=== PATIENT | female | born 1940 | race Two or more races ===

== ENCOUNTER → 2023-05-21 | Outpatient (CLI) | payer OTHER ==
[2023-05-21 12:11] LABS: Basophils # (auto) 0 10 ^3/uL (0-0.2); Basophils % (auto) 0.8 % (0.0-2.0); Eosinophils # (auto) 0.3 10 ^3/uL (0-0.8); Eosinophils % (auto) 5.1 % (0.0-7.0); Hematocrit 37.2 % (36.0-46.0); Hemoglobin 12.7 g/dL (12.2-16.2); Lymphocytes % (auto) 34.8 % (10.0-50.0); Mean Corpuscular Hemoglobin 30.6 pg (28.0-32.0); Mean Corpuscular Volume 90.1 fL (80.0-100.0); Monocytes # (auto) 0.4 10 ^3/uL (0-1.3); Monocytes % (auto) 6.1 % (0.0-12.0); Neutrophils # (auto) 3.1 10 ^3/uL (1.6-8.6); Neutrophils % (auto) 53.2 % (37.0-80.0); Nucleated Red Blood Cells % 0.2 %; Red Blood Cells 4.14 10^6/uL (4.0-5.20); Red Cell Distribution Width 13.9 % (11.8-14.3); White Blood Cell 5.9 10^3/uL (4.4-10.8)
[2023-05-21 12:35] LABS: Alanine Aminotransferase 14 U/L (7-40); Albumin 4.4 g/dL (3.2-4.8); Alkaline Phosphatase 113 U/L (46-116); Anion Gap 7 (5-15); Aspartate Aminotransferase 19 U/L (13-40); BUN/Creatinine Ratio 21.2 (10.0-20.0); Blood Urea Nitrogen 25 mg/dL (9-23); Calcium 9.9 mg/dL (8.5-10.1); Carbon Dioxide 30 mmol/L (20-30); Chloride 103 mmol/L (98-107); Glucose 96 mg/dL (74-106); LDL Cholesterol 125 mg/dL (< 100); Potassium 4.2 mmol/L (3.5-5.1); Sodium 140 mmol/L (136-145); Triglycerides 310 mg/dL (< 150)
[2023-05-21 12:36] LABS: Bilirubin, Total 0.3 mg/dL (0.2-1.0); Cholesterol 215 mg/dL (< 200); HDL Cholesterol 33 mg/dL (40-59); Total Protein 7.9 g/dL (5.7-8.2)
== END | disposition home or self-care (01) ==
LOC: LAB 11:52
PROVIDERS: ATTEND Internal Medicine
DX: Z12.11 Encounter for screening for malignant neoplasm of colon (principal); E78.00 Pure hypercholesterolemia, unspecified; R68.89 Other general symptoms and signs; R56.9 Unspecified convulsions
CPT/HCPCS: 36415; 80053; 80061; 80185; 85025

== ENCOUNTER 2025-03-05 03:00 | Inpatient (IN) | payer OTHER ==
[~2025-03-05] VITALS: Ht 152.4 cm; Wt 59.1 kg
[2025-03-05] VITALS (7 sets, daily range): BP systolic 112–129; BP diastolic 32–73; PULSE 60–78; RESP 12–16; TEMP 96.6–98.4; O2SAT 96–100
--- NOTE | 2025-03-05 04:18 | ED.PDOC ---
History of Present Illness HPI Comments 84-year-old female with a history of hypertension, dementia and seizures transferred from [facility] where she presented after having had multiple falls that started last night patient reportedly suffered around 15 falls. Patient underwent workup at [facility] including CT head which was unremarkable and chest x-ray which showed pneumonia. Patient is noted to be alert and oriented x3 this time, but is slow to respond to questions. She denies any chest pain, shortness of breath, nausea, vomiting or fever. No other associated symptoms, factors, modifiers at this time. Chief Complaint: Fall Injury Time Seen by MD: 04:13 Reviewed Notes: Nurses Notes, Framing Machine Tender Notes, Medications, Allergies Allergies: Coded Allergies: Codeine (Verified Allergy, Unknown, 03/05/25) Information Source: Patient, Emergency Med Personnel Mode of Arrival: EMS Severity: Moderate Timing: Hours Duration: Since onset, Hours Prehospital treatment: None Past Medical History PAST MEDICAL HISTORY: Dementia, HTN, Seizures Surgical History (Other): Heart surgery CERTIFIED CAREGIVER History: Unknown Family History Family History: Unknown Social History Smoker: Non-Smoker Alcohol: Denies ETOH Use Drugs: Denies Drug Use Lives In: Home All Other Systems: Reviewed and Negative (Comprehensive systems review obtained and negative except for what is stated in the HPI.) Physical Exam General Appearance: No Apparent Distress HEENT: Other (Pupils and face symmetric. Moist mucous membranes.) Neck: Full Range of Motion, Non-Tender, Normal Inspection, Supple Respiratory: Decreased Breath Sounds, No Accessory Muscle Use, No Respiratory Distress Cardiovascular: No Edema, No JVD, Regular Rate/Rhythm Breast Exam: Deferred Gastrointestinal: Non Tender, Soft Genitalia: Deferred Pelvic: Deferred Rectal: Deferred Extremities: Normal inspection, Normal range of motion, Non-tender, No pedal edema Neurologic: Alert (Oriented x3), Normal Affect, Normal Mood, Other (Moves all extremities. No gross focal deficit.) Cerebellar Function: NOT DONE Reflexes: NOT DONE Skin: Dry, Pallor, Warm Lymphatic: NOT DONE Was a procedure done? Was a procedure done?: No Differential Dx Considerations may include: CVA, TIA, electrolyte imbalance, deconditioning, pneumonia, among others X-Ray, Labs, Meds, VS Vital Signs Date Time Temp Pulse Resp B/P (MAP) Pulse Ox O2 Delivery O2 Flow Rate FiO2 03/05/25 03:05 97.5 55 16 150/71 98 97.5 X-Ray, Labs, Meds, VS Comment 84-year-old female with a history of hypertension, dementia and seizures transferred from [facility] for evaluation of multiple recent falls and pneumonia Vitals remarkable for heart rate 55, BP 140/71 Exam unremarkable except for diminished breath sounds at the bases Rhythm strip independently interpreted by me: Sinus rhythm, rate 55, no ectopy. CBC, basic metabolic panel, BNP, troponins, lactate and blood cultures pending Patient was treated at [facility] with IV normal saline, IV Zosyn and Benadryl IM. Plan is to admit the patient for IV antibiotics and PT/OT evaluation Time of 1ST Reevaluation: 04:44 Reevaluation 1ST: Unchanged Patient Education/Counseling: Diagnosis, Treatment, Need For Follow Up Family Education/Counseling: No Family Present SEPSIS Sepsis Screen Date sepsis recognized/suspect: Mar 05, 2025 Time Sepsis recognized/suspect: 310 Recent Procedure: No On Antibiotic Therapy: No Respiratory Rate >20: No Heart Rate >90: No Temp<36 C (96.8 F) or >38.3 C: No SBP <90 or MAP <65 mmHG: No New Acute Mental Status Change: No Is the patient on CPAP, BIPAP,: No Physician Orders Troponin-I Hs (03/05/25 03:59) Complete Blood Count (03/05/25 03:59) B-Type Natriuretic Peptide (03/05/25 03:59) Chest Portable (03/05/25 03:59) Basic Metabolic Panel (03/05/25 03:59) Electrocardigram (03/05/25 03:59) Lactic Acid W/ Reflex Order (03/05/25 03:59) Blood Culture (03/05/25 03:59) Troponin-I Hs (03/05/25 04:59) Troponin-I Hs (03/05/25 06:59) Vital Signs Date Time Temp Pulse Resp B/P (MAP) Pulse Ox O2 Delivery O2 Flow Rate FiO2 03/05/25 03:05 97.5 55 16 150/71 98 97.5 Departure 1 Departure Time of Disposition: 05:18 Impression: Primary Impression: Frequent falls Additional Impression: Pneumonia Disposition: ADMITTED INPATIENT Admit to: Tele Condition: Guarded Critical Care Note Critical Care Time?: No Stability Stability form required: No Heart Score Heart Score: Heart Score Response (Comments) Value History N/A 0 EKG N/A 0 Age N/A 0 Risk Factors N/A 0 Troponin N/A 0 Total 0 I personally scribed for VIRGIE DE LA FUENTE MD ([email or web address]) on 03/05/25 at 04:18. Electronically submitted by Richard Mckeon ([email or web address]). VIRGIE DE LA FUENTE MD Mar 05, 2025 04:18
--- NOTE | 2025-03-05 05:47 | DVH ---
CHEST RADIOGRAPH Indication: pna Technique: 1 view Comparison: None FINDINGS: Assessment significantly limited by overlying arm. Lines and Tubes: Leads appear external to patient. Lungs: No obvious focal consolidation. Mild bibasilar airspace opacities suggestive of atelectasis.. Bilateral interstitial opacities. Pleura: No obvious abnormality. Cardiomediastinal contours: Enlarged heart size. Suspected aortic valve replacement. Possible prior C ABG. Bones: No acute osseous abnormality. Median sternotomy wires and cervical fixation. IMPRESSION: 1. Limited exam. Evidence of heart failure with interstitial edema and mild basilar atelectasis.
[2025-03-05 06:05] LABS: Chloride 103 mmol/L (98-107); Sodium 144 mmol/L (136-145)
[2025-03-05 06:06] LABS: Anion Gap 11 (5-15); Carbon Dioxide 30 mmol/L (20-31)
[2025-03-05 06:07] LABS: Hematocrit 36.1 % (36.0-46.0); Hemoglobin 12.6 g/dL (12.2-16.2); Mean Corpuscular Hemoglobin 32.8 pg (28.0-32.0); Mean Corpuscular Volume 94.4 fL (80.0-100.0); Nucleated Red Blood Cells % 0.1 %
[2025-03-05 06:11] LABS: BUN/Creatinine Ratio 9.1 (10.0-20.0); Blood Urea Nitrogen 10 mg/dL (9-23); Glucose 84 mg/dL (74-106)
[2025-03-05 06:27] LABS: Calcium 8.2 mg/dL (8.7-10.4); Potassium 3.1 mmol/L (3.5-5.1)
[2025-03-05 09:14] LABS: Albumin 3.6 g/dL (3.2-4.8); Alkaline Phosphatase 93.0 U/L (46-116); Bilirubin, Direct 0.1 mg/dL (<0.3); Bilirubin, Total 0.4 mg/dL (0.2-1.0); Magnesium 1.8 mg/dL (1.6-2.6); Total Protein 6.2 g/dL (5.7-8.2)
[2025-03-05 09:22] LABS: Alanine Aminotransferase 47.0 U/L (7-40)
[2025-03-05 09:37] LABS: Urine Protein, UAD Negative (Negative)
[2025-03-05 09:44] LABS: Barbiturate Scree,Urine Neg (NEGATIVE)
[2025-03-05 09:45] LABS: Amphetamine Screen, Urine Neg (NEGATIVE); Benzodiazephine Screen, Urine Neg (NEGATIVE); Cannabinoid Screen, Urine Neg (NEGATIVE); Cocaine Screen, Urine Neg (NEGATIVE); Opiate Scree,Urine Neg (NEGATIVE); Phencyclidine Screen, Urine Neg (NEGATIVE)
--- NOTE | 2025-03-05 09:52 | DVHHPRES ---
History of Present Illness Resident Creating Document: ARIES MORATAYA RESIDENT History of Present Illness This is an 84-year-old female with a history of seizures, possible aortic valve replacement, questionable congestive heart failure, hypertension, dementia who was transferred from [facility] for the evaluation of falls. Patient appears confused and disoriented, not following commands. Clement at bedside reports that patient was taking her water pills daily and was not eating and drinking for the past 2 weeks, reports that the patient was experiencing no appetite and generalized weakness. Patient does not use a walker to ambulate, experienced about 5 falls on 03/03 because her legs were giving up in the patient with collapse, denies that the patient did not hit her head or lost consciousness or any seizure-like activity. Patient did not lose her urine or bowel movements. Her , last seizure was 2 years back Patient takes clopidogrel but not anticoagulants, per Chart reviewed [facility], head CT was unremarkable for acute hemorrhage or acute stroke, chest x-ray showed bibasilar opacity likely pneumonia. Patient had hypokalemia. Past medical history: history of seizures, possible aortic valve replacement, questionable congestive heart failure, hypertension, dementia Home medications: Gabapentin, clopidogrel, Lasix 40 mg daily, acyclovir 400 mg, metoprolol succinate 50 mg, memantine 10 mg, atorvastatin 10 mg Social history: Lives with , per patient does not smoke drink or reported drug use PCP Dr. Morrison Patient seen and examined in ER bed 3. She is altered. Kept NPO. IV ceftriaxone, azithromycin started. Telemetry shows blood pressure systolic 1 100s, bradycardia, pulse 50s, ordered EKG,. Review of Systems Review of Systems Could not be obtained as patient is altered Allergies: Coded Allergies: Codeine (Verified Allergy, Unknown, 03/05/25) Medications Current Medications Medications Dose Ordered Sig/Shimon Route Start Time Stop Time Status Last Admin Dose Admin Potassium Chloride 100 ml @ 50 mls/hr Q2H IV 03/05/25 09:00 03/05/25 12:59 Exam Vital Signs Vital Signs Date Time Temp Pulse Resp B/P (MAP) Pulse Ox O2 Delivery O2 Flow Rate FiO2 03/05/25 08:29 65 03/05/25 07:53 15 96 Room Air* 0 21 03/05/25 07:52 96.6 129/32 (64) 96.6 Exam Elderly female patient lying in the bed, lethargic, confused, A&O 0 General: Well-built, afebrile, palor, mucosae are moist Cardiovascular: Bradycardic but Sinus, Regular S1 and S2. No murmurs, gallops or rubs. No JVD elevation. No pedal edema Respiratory: Decreased air entry bilaterally, on room air Abdomen: Soft, nontender, nondistended, normoactive bowel sounds, no rebound tenderness, no organomegaly, no masses Genitourinary: Deferred MSK/skin: Mobilizes 4 limbs. Skin is dry and warm Neurological: No motor, no sensitive deficits, normal speech. Pupils are isoco ekta and reactive. Psych/Mental Status: A/Ox0 Labs/Xrays Labs Test 03/05/25 09:22 03/05/25 09:21 03/05/25 07:03 03/05/25 05:32 Range/Units Urine Opiates Screen Neg NEGATIVE Urine Fentanyl Screen Neg NEGATIVE Urine Barbiturates Screen Neg NEGATIVE Urine Phencyclidine Screen Neg NEGATIVE Urine Amphetamines Screen Neg NEGATIVE Urine Benzodiazepines Screen Neg NEGATIVE Urine Cocaine Screen Neg NEGATIVE Urine Cannabinoids Screen Neg NEGATIVE Urine Color Light-yellow Yellow Urine Clarity Clear Clear Urine pH 8.0 5.0-9.0 Urine Specific [place] 1.012 1.001-1.035 Urine Protein Negative Negative Urine Ketones Trace Negative Urine Blood 3+ H Negative /uL Urine Nitrite Negative Negative Urine Bilirubin Negative Negative Urine Urobilinogen Normal Negative mg/dL Urine Leukocyte Esterase Negative Negative /uL Urine RBC 251 0 - 4 /hpf Urine Microscopic WBC 3 0-5 /HPF Urine Squamous Epithelial Cells Few <5 /hpf Urine Bacteria None seen None Seen /hpf Urine Glucose Normal Normal mg/dL Troponin I High Sensitivity 11 </=34 ng/L White Blood Count 5.3 4.4-10.8 10^3/uL Red Blood Count 3.83 L 4.0-5.20 10^6/uL Hemoglobin 12.6 12.2-16.2 g/dL Hematocrit 36.1 36.0-46.0 % Mean Corpuscular Volume 94.4 80.0-100.0 fL Mean Corpuscular Hemoglobin 32.8 H 28.0-32.0 pg Mean Corpuscular Hemoglobin Concent 34.8 32.0-36.0 g/dL Red Cell Distribution Width 14.7 H 11.8-14.3 % Platelet Count 128 L 140-450 10^3/uL Mean Platelet Volume 8.4 6.9-10.8 fL Neutrophils (%) (Auto) 44.8 37.0-80.0 % Lymphocytes (%) (Auto) 39.2 10.0-50.0 % Monocytes (%) (Auto) 7.8 0.0-12.0 % Eosinophils (%) (Auto) 7.4 H 0.0-7.0 % Basophils (%) (Auto) 0.8 0.0-2.0 % Neutrophils # (Auto) 2.4 1.6-8.6 10 ^3/uL Lymphocytes # (Auto) 2.1 0.4-5.4 10 ^3/uL Monocytes # (Auto) 0.4 0-1.3 10 ^3/uL Eosinophils # (Auto) 0.4 0-0.8 10 ^3/uL Basophils # (Auto) 0 0-0.2 10 ^3/uL Nucleated Red Blood Cells 0.1 % Test 03/05/25 05:31 03/05/25 05:28 Range/Units Lactic Acid Level 1.3 0.4-2.0 mmol/L Sodium Level 144 136-145 mmol/L Potassium Level 3.1 L 3.5-5.1 mmol/L Chloride Level 103 98-107 mmol/L Carbon Dioxide Level 30 20-31 mmol/L Anion Gap 11 5-15 Blood Urea Nitrogen 10 9-23 mg/dL Creatinine 1.10 H 0.550-1.02 mg/dL Glomerular Filtration Rate Calc 50 >90 mL/min BUN/Creatinine Ratio 9.1 L 10.0-20.0 Serum Glucose 84 74-106 mg/dL Calcium Level 8.2 L 8.7-10.4 mg/dL Magnesium Level 1.8 1.6-2.6 mg/dL Total Bilirubin 0.4 0.2-1.0 mg/dL Direct Bilirubin 0.1 <0.3 mg/dL Aspartate Amino Transferase (AST) 88 H 13-40 U/L Alanine Aminotransferase (ALT) 47 H 7-40 U/L Alkaline Phosphatase 93 46-116 U/L B-Type Natriuretic Peptide 251.29 0-100 pg/mL Total Protein 6.2 5.7-8.2 g/dL Albumin 3.6 3.2-4.8 g/dL Thyroid Stimulating Hormone (TSH) 6.56 H 0.55-4.78 uIU/mL SEPSIS Sepsis Screen Date sepsis recognized/suspect: Mar 05, 2025 Time Sepsis recognized/suspect: 916 Recent Procedure: No On Antibiotic Therapy: No Respiratory Rate >20: No Heart Rate >90: No Temp<36 C (96.8 F) or >38.3 C: No SBP <90 or MAP <65 mmHG: No New Acute Mental Status Change: No Is the patient on CPAP, BIPAP,: No Physician Orders Chest Portable (03/05/25 03:59) Electrocardigram (03/05/25 03:59) Blood Culture (03/05/25 03:59) Potassium Chl 20meq/100ml (03/05/25 09:00) Strict Aspiration Precautions (03/05/25 08:50) Admit (03/05/25 09:48) Electrocardigram (03/05/25 09:48) Vital Signs Date Time Temp Pulse Resp B/P (MAP) Pulse Ox O2 Delivery O2 Flow Rate FiO2 03/05/25 08:29 65 03/05/25 07:53 60 15 96 Room Air* 0 21 03/05/25 07:52 96.6 60 15 129/32 (64) 96 96.6 03/05/25 06:57 55 14 131/53 (79) 96 03/05/25 05:13 97.9 60 12 167/55 (92) 96 97.9 03/05/25 05:13 60 12 96 Room Air* 0 21 03/05/25 03:05 97.5 55 16 150/71 98 97.5 Laboratory Tests Test 03/05/25 05:31 03/05/25 05:32 Lactic Acid Level 1.3 mmol/L (0.4-2.0) White Blood Count 5.3 10^3/uL (4.4-10.8) Assessment/Plan Assessment/Plan ALOC rule out metabolic causes Likely Gram-positive and Gram-negative pneumonia Rule out aspiration pneumonia IV ceftriaxone and azithromycin starting 03/05 COVID/influenza/MRSA nares pending Nebulized treatments NPO, swallow eval Sputum culture Recurrent falls secondary to generalized weakness Admitted to telemetry unit Gross hematuria RBC 251, 3+ blood Likely Hogan induced, monitor Hypertension Controlled, Holding antihypertensives at this time Thrombocytopenia Monitor platelets Transaminitis Liver ultrasound declined by pt Hypokalemia Supplemented History of seizure disorder does not know the name of seizure medication Last seizure 2 years back Seizure precautions, aspiration precautions History of likely aortic valve replacement Consider resuming Plavix Plan discussed with the in ER in which all questions have been answered Goals of care discussed with the patient's for 20 minutes; full code status Case discussed with Dr. Martin I was physically present for the kapadia portions of the service provided to patient by THE RESIDENT. I have reviewed the documentation, discussed the case with resident and agree with the resident's documentation except as noted. Also the patient's clinical case was discussed with the patient's nurse. This medical document was created using an electronic medical record system with computerized dictation system. Although this document has been carefully reviewed, there might still be some phonetic and typographical errors. These areas are purely typographical due to imperfections of the software programs, and do not reflect any compromise in the patient's medical care. Late signature. Plan discussed with: Spouse, Other (Nurse) My Orders Orders - ARIES MORATAYA Procedure Category Date Status Time Potassium Chl PHA 03/05/25 In Process 20meq/100ml 09:00 Strict Aspiration TERESA 03/05/25 In Process Precautions 08:50 Admit ADMIT 03/05/25 Transmitted 09:48 Electrocardigram EKG 03/05/25 Logged 09:48 Date of Service: Mar 05, 2025 Billing Provider: DILMA MARTIN MD Common Visit Codes: [id number] INP/OBS CARE (HIGH) Secondary Visit Codes: [id number] CARE PLAN 30 MINUTES (20 minutes) ARIES MORATAYA Mar 05, 2025 09:52 DILMA MARTIN MD Mar 07, 2025 06:09
[2025-03-05] MEDS: POTASSIUM CHL 20MEQ/100ML 100 ML IV SCH (09:59)
[2025-03-05] MEDS: AZITHROMYCIN 500MG/ 250ML 250 ML IV SCH (10:00)
[2025-03-05] MEDS ORDERED: IPRATROPIUM BROM 0.5 MG/2.5ML INH SOL NEB SCH (10:00)
[2025-03-05] MEDS ORDERED: ALBUTEROL SULF 2.5 MG/0.5ML(0.5%) NEB SOLN NEB SCH (10:00)
[2025-03-05] MEDS: cefTRIAXone 1GM/50ML D5W 50 ML IV ONE (10:46)
[2025-03-05] MEDS: ALBUTEROL SULF 2.5 MG/0.5ML(0.5%) NEB SOLN NEB SCH (11:01)
[2025-03-05] MEDS: IPRATROPIUM BROM 0.5 MG/2.5ML INH SOL NEB SCH (11:01)
[2025-03-05 12:04] LABS: COVID19 ANTIGEN SOFIA FIA NEGATIVE (NEGATIVE)
[2025-03-05] MEDS: HALOPERIDOL LACTATE 5 MG/ML INJ VIAL ONE (16:12)
[2025-03-05] MEDS: HALOPERIDOL LACTATE 5 MG/ML INJ VIAL IM ONE (17:07)
[2025-03-06] VITALS (12 sets, daily range): BP systolic 98–130; BP diastolic 42–73; PULSE 77–103; RESP 14–20; TEMP 97.8–98.5; O2SAT 95–99
[2025-03-06] MEDS: cefTRIAXone 1GM/50ML D5W 50 ML IV SCH (10:50)
[2025-03-06] MEDS ORDERED: METO-289 PO (13:05)
[2025-03-06] MEDS ORDERED: MEMA1TAB5 PO (13:05)
[2025-03-06] MEDS ORDERED: GAB100C PO (13:05)
--- NOTE | 2025-03-06 13:10 | DVHPN2 ---
Subjective Patient reports having right hip pain Reviewed: Care Plan, H&P, Labs, Medications Changes from previous H/P or p: No Changes General: Per HPI Objective Vitals Vital Signs Date Time Temp Pulse Resp B/P (MAP) Pulse Ox O2 Delivery O2 Flow Rate FiO2 03/06/25 12:40 85 18 99 03/06/25 12:34 Room Air 0.0 03/06/25 12:34 21 03/06/25 09:30 130/52 (78) 03/06/25 04:33 97.8 97.8 Intake/Output Intake and Output 03/06/25 07:00 Intake Total 200 ml Output Total 2100 ml Balance -1900 ml Intake Oral 0 ml IV Total 200 ml Output Urine Total 2100 ml General Appearance: Alert, mild distress, Other (Oriented x2) HEENT: Atraumatic, PERRLA Lungs: Clear to auscultation, Normal air movement Cardiovascular: Normal S1, Normal S2 Genitourinary: No Apparent Abnormalities Musculoskeletal: Normal sensory function, Normal motor function Neuro: Normal gait, Normal speech Skin: Dry, Intact Psych/Mental Status: Mental status NL, Mood NL Medications Current Medications Medications Dose Ordered Sig/Shimon Route Start Time Stop Time Status Last Admin Dose Admin Ceftriaxone Sodium 50 ml @ 100 mls/hr DAILY@09 IV 03/06/25 09:00 03/06/25 10:50 100 MLS/HR Azithromycin 250 ml @ 125 mls/hr DAILY IV 03/05/25 10:00 03/07/25 12:00 03/06/25 12:57 125 MLS/HR Albuterol 2.5 mg Q6HR NEB 03/05/25 12:00 03/06/25 12:34 2.5 MG Ipratropium [place] 0.5 mg Q6HR NEB 03/05/25 12:00 03/06/25 12:34 0.5 MG Laboratory Results Laboratory Tests 03/05/25 05:28 03/05/25 05:32 Urinalysis Test 03/05/25 09:21 Urine Color Light-yellow (Yellow) Urine Clarity Clear (Clear) Urine pH 8.0 (5.0-9.0) Urine Specific [place] 1.012 (1.001-1.035) Urine Protein Negative (Negative) Urine Ketones Trace (Negative) Urine Blood 3+ /uL (Negative) H Urine Nitrite Negative (Negative) Urine Bilirubin Negative (Negative) Urine Urobilinogen Normal mg/dL (Negative) Urine Leukocyte Esterase Negative /uL (Negative) Urine RBC 251 /hpf (0 - 4) Urine Microscopic WBC 3 /HPF (0-5) Urine Squamous Epithelial Cells Few /hpf (<5) Urine Bacteria None seen /hpf (None Seen) Urine Glucose Normal mg/dL (Normal) Microbiology Microbiology Date/Time Source Procedure Growth Status 03/05/25 07:03 Blood Blood Culture - Preliminary NO GROWTH AFTER 24 HOURS OF INCUBATION. Resulted Labs and/or images reviewed: Labs reviewed by me, Image(s) reviewed by me Assessment/Plan Assessment/Plan Impression: -hypokalemia -dementia -mechanical falls -primary hypertension -CVA ruled out Plan: -right hip x-ray -echocardiogram -potassium replacement -physical therapy -swallow evaluation -repeat labs in a.m. Total time spent with patient discussing and formulating plan of care: 35 minutes. This medical document was created using an electronic medical record system with [employer] dictation system. Although this document has been carefully reviewed, there may still be some phonetic and typographical errors. These areas are purely typographical due to imperfections of the software programs, and do not reflect any compromise in the patient's medical care. Plan discussed with: Patient, Other (RN) My Orders Orders - NIKKO URBINA NP Procedure Category Date Status Time Swallow Eval Follow Up TERESA 03/06/25 In Process 12:52 Echo 2d Mode Cardiac US 03/06/25 Logged DOP 12:52 R Hip Complete Xray XY 03/06/25 Logged 13:05 Cardiac DIET 03/06/25 Transmitted Diet-2gna,Lofat,Lochol Lunch Gabapentin Capsule PHA 03/06/25 Logged (Neurontin Capsule) 14:00 (Nf) Memantine PHA 03/06/25 Logged Hydrochloride 22:00 Date of Service: Mar 06, 2025 Billing Provider: NIKKO URBINA NP Common Visit Codes: [id number] INP/OBS CARE(HIGH) NIKKO URBINA NP Mar 06, 2025 13:10
[2025-03-06 13:33] LABS: Hematocrit 35.0 % (36.0-46.0); Hemoglobin 12.1 g/dL (12.2-16.2); Mean Corpuscular Hemoglobin 32.8 pg (28.0-32.0); Mean Corpuscular Volume 94.5 fL (80.0-100.0); Nucleated Red Blood Cells % 0.1 %
[2025-03-06 13:40] LABS: Alanine Aminotransferase 33 U/L (7-40); Albumin 3.6 g/dL (3.2-4.8); Alkaline Phosphatase 99 U/L (46-116); Anion Gap 14 (5-15); BUN/Creatinine Ratio 10.3 (10.0-20.0); Blood Urea Nitrogen 10 mg/dL (9-23); Carbon Dioxide 25 mmol/L (20-31); Chloride 105 mmol/L (98-107); Glucose 75 mg/dL (74-106); Sodium 144 mmol/L (136-145); Total Protein 5.9 g/dL (5.7-8.2)
[2025-03-06 13:41] LABS: Bilirubin, Total 0.4 mg/dL (0.2-1.0)
[2025-03-06 13:44] LABS: Calcium 8.4 mg/dL (8.7-10.4); Potassium 3.4 mmol/L (3.5-5.1)
[2025-03-06] MEDS: GABAPENTIN 100 MG CAP PO SCH (14:00)
--- NOTE | 2025-03-06 15:13 | DVH ---
RIGHTLEFT HIP RADIOGRAPH. CLINICAL INDICATION: rule out fracture TECHNIQUE: 4 views of the bilateral hip were obtained. FINDINGS: There is no evidence of fracture, subluxation or dislocation. Moderate bilateral hip osteoa rthrtis The bony mineralization is normal.No radiopaque foreign body is identified. IMPRESSION: 1. No evidence of acute bony injury.
[2025-03-06] MEDS: Memantine Hydrochloride 10 MG TAB PO SCH (21:44)
[2025-03-07] VITALS (8 sets, daily range): BP systolic 120–167; BP diastolic 60–83; PULSE 61–93; RESP 14–19; TEMP 98.1–98.4; O2SAT 94–100
--- NOTE | 2025-03-07 11:40 | DVHSR ---
APPROVED REPORT EXAM: Two-dimensional and M-mode echocardiogram with Doppler and color Doppler. Blood Pressure: 130/52 mmHg INDICATION Acute systolic HF Surgery/Intervention Valve Replacement: Bioprosthetic Type: TAVR RISK FACTORS Height: 5'0", Weight: 130 DIMENSIONS LVDd3.9 (3.8-5.7cm)LA (2D)4.2 (1.9-4.0cm)Aortic Root3.2 (2.0-3.7cm) LVDs2.6 (2.5-4.0cm)LA (MM) (1.9-4.0cm)Aortic Cusp Exc1.5 (1.5-2.0cm) EF (%) 63.0 (55-70%)Rt. Atrium3.3 (1.9-4.0cm)Asc. Aorta cm IVSd1.1 (0.7-1.1cm)RV (D) (1.8-2.4cm) PWd1.1 (0.7-1.1cm) Mitral Valve MitralMitral Stenosis E wave1.16m/sMV Mean GR.4mmHg A wave1.42m/sMV Peak GR.8mmHg E/A ratio0.82D MVAcm2 DECEL [id number] 1/2 [id number] IVRTmsDop MVA2.30cm2 Aortic Valve Aortic ValveAortic Stenosis V11.21m/Albert Mean GR.12mmHg V22.45m/Albert Peak GR.24mmHg LVOT Diameter2.0 (1.8-2.4cm)Doppler AVA1.55cm2 Pulmonic Valve V20.95m/s Other Information Technically limited study due to body habitus, patient position. Conclusion lvef 60% mild LVH normal rv function left atrium enlarged mild s/p AVR--normal function, no sig AI severe MAC, mitral stenosis not quantified
--- NOTE | 2025-03-07 12:25 | DVHDS2 ---
Discharge Summary Date of Admission Mar 05, 2025 at 09:48 Date of Discharge: Mar 07, 2025 Admitting Diagnosis Altered level consciousness Labs/Diagnostic Data: Laboratory Results Test 03/06/25 13:00 03/05/25 11:43 03/05/25 10:34 03/05/25 09:22 White Blood Count 6.6 10^3/uL (4.4-10.8) Red Blood Count 3.70 10^6/uL (4.0-5.20) Hemoglobin 12.1 g/dL (12.2-16.2) Hematocrit 35.0 % (36.0-46.0) Mean Corpuscular Volume 94.5 fL (80.0-100.0) Mean Corpuscular Hemoglobin 32.8 pg (28.0-32.0) Mean Corpuscular Hemoglobin Concent 34.8 g/dL (32.0-36.0) Red Cell Distribution Width 14.8 % (11.8-14.3) Platelet Count 141 10^3/uL (140-450) Mean Platelet Volume 8.2 fL (6.9-10.8) Neutrophils (%) (Auto) 48.9 % (37.0-80.0) Lymphocytes (%) (Auto) 39.2 % (10.0-50.0) Monocytes (%) (Auto) 6.0 % (0.0-12.0) Eosinophils (%) (Auto) 5.3 % (0.0-7.0) Basophils (%) (Auto) 0.6 % (0.0-2.0) Neutrophils # (Auto) 3.2 10 ^3/uL (1.6-8.6) Lymphocytes # (Auto) 2.6 10 ^3/uL (0.4-5.4) Monocytes # (Auto) 0.4 10 ^3/uL (0-1.3) Eosinophils # (Auto) 0.3 10 ^3/uL (0-0.8) Basophils # (Auto) 0 10 ^3/uL (0-0.2) Nucleated Red Blood Cells 0.1 % Sodium Level 144 mmol/L (136-145) Potassium Level 3.4 mmol/L (3.5-5.1) Chloride Level 105 mmol/L (98-107) Carbon Dioxide Level 25 mmol/L (20-31) Anion Gap 14 (5-15) Blood Urea Nitrogen 10 mg/dL (9-23) Creatinine 0.97 mg/dL (0.550-1.02) Glomerular Filtration Rate Calc 58 mL/min (>90) BUN/Creatinine Ratio 10.3 (10.0-20.0) Serum Glucose 75 mg/dL (74-106) Calcium Level 8.4 mg/dL (8.7-10.4) Total Bilirubin 0.4 mg/dL (0.2-1.0) Aspartate Amino Transferase (AST) 54 U/L (13-40) Alanine Aminotransferase (ALT) 33 U/L (7-40) Alkaline Phosphatase 99 U/L (46-116) Total Protein 5.9 g/dL (5.7-8.2) Albumin 3.6 g/dL (3.2-4.8) Influenza Type A Antigen Negative (Negative) Influenza Type B Antigen Negative (Negative) SARS-CoV-2 Antigen (Rapid) Negative (NEGATIVE) Ammonia 12 umol/L (11-32) Free Thyroxine (T4) Calculated 0.66 ng/dL (0.89-1.76) Urine Opiates Screen Neg (NEGATIVE) Urine Fentanyl Screen Neg (NEGATIVE) Urine Barbiturates Screen Neg (NEGATIVE) Urine Phencyclidine Screen Neg (NEGATIVE) Urine Amphetamines Screen Neg (NEGATIVE) Urine Benzodiazepines Screen Neg (NEGATIVE) Urine Cocaine Screen Neg (NEGATIVE) Urine Cannabinoids Screen Neg (NEGATIVE) Test 03/05/25 09:21 03/05/25 07:03 03/05/25 05:31 03/05/25 05:28 Urine Color Light-yellow (Yellow) Urine Clarity Clear (Clear) Urine pH 8.0 (5.0-9.0) Urine Specific [place] 1.012 (1.001-1.035) Urine Protein Negative (Negative) Urine Ketones Trace (Negative) Urine Blood 3+ /uL (Negative) Urine Nitrite Negative (Negative) Urine Bilirubin Negative (Negative) Urine Urobilinogen Normal mg/dL (Negative) Urine Leukocyte Esterase Negative /uL (Negative) Urine RBC 251 /hpf (0 - 4) Urine Microscopic WBC 3 /HPF (0-5) Urine Squamous Epithelial Cells Few /hpf (<5) Urine Bacteria None seen /hpf (None Seen) Urine Glucose Normal mg/dL (Normal) Troponin I High Sensitivity 11 ng/L (</=34) Lactic Acid Level 1.3 mmol/L (0.4-2.0) Magnesium Level 1.8 mg/dL (1.6-2.6) Direct Bilirubin 0.1 mg/dL (<0.3) B-Type Natriuretic Peptide 251.29 pg/mL (0-100) Thyroid Stimulating Hormone (TSH) 6.56 uIU/mL (0.55-4.78) Other Laboratory Tests 03/06/25 13:00 Brief Hx & Hospital Course: History of Present Illness This is an 84-year-old female with a history of seizures, possible aortic valve replacement, questionable congestive heart failure, hypertension, dementia who was transferred from [facility] for the evaluation of falls. Patient appears confused and disoriented, not following commands. Clement at bedside reports that patient was taking her water pills daily and was not eating and drinking for the past 2 weeks, reports that the patient was experiencing no appetite and generalized weakness. Patient does not use a walker to ambulate, experienced about 5 falls on 03/03 because her legs were giving up in the patient with collapse, denies that the patient did not hit her head or lost consciousness or any seizure-like activity. Patient did not lose her urine or bowel movements. Her , last seizure was 2 years back Patient takes clopidogrel but not anticoagulants, per Chart reviewed [facility], head CT was unremarkable for acute hemorrhage or acute stroke, chest x-ray showed bibasilar opacity likely pneumonia. Patient had hypokalemia. Past medical history: history of seizures, possible aortic valve replacement, questionable congestive heart failure, hypertension, dementia Home medications: Gabapentin, clopidogrel, Lasix 40 mg daily, acyclovir 400 mg, metoprolol succinate 50 mg, memantine 10 mg, atorvastatin 10 mg Social history: Lives with , per patient does not smoke drink or reported drug use PCP Dr. Morrison Patient seen and examined in ER bed 3. She is altered. Kept NPO. IV ceftriaxone, azithromycin started. Telemetry shows blood pressure systolic 1 100s, bradycardia, pulse 50s, ordered EKG,. Course of hospitalization: Patient has a underlying history of dementia. Patient has improvement with mental status with family around. Patient received physical therapy while in the hospital. Discussion was made with patient's who states that he did provide her one beer with her medications prior to coming in the hospital. Patient has noticeable ecchymosis to bilateral upper extremity as well as right hip. No deformities or limitations in range of motion. Right hip x-ray negative for fracture. Patient will be discharged home. Home safety evaluation we will be performed. She will follow up with her PCP in 1-2 weeks. Physical examination General: Alert and Oriented x3. No acute distress. Well-nourished. Eyes: EOMI. Anicteric. HENT: Moist mucous membranes. Lungs: Clear to auscultation bilaterally. No accessory muscle use. Cardiovascular: Regular rate and rhythm. No murmur. No JVD. Abdomen: Soft, non-tender and non-distended. No palpable masses. Extremities: No edema. Non-tender. Skin: No rashes or lesions. Warm. Neurologic: No focal neurological deficits. CN II-XII grossly intact, but not individually tested. Psychiatric: Cooperative. Appropriate mood and affect. Total time spent with patient discussing and formulating plan of care: 35 minutes. This medical document was created using an electronic medical record system with [employer] dictation system. Although this document has been carefully reviewed, there may still be some phonetic and typographical errors. These areas are purely typographical due to imperfections of the software programs, and do not reflect any compromise in the patient's medical care. Condition at Discharge: Guarded Final Diagnosis/Problems List Metabolic Encephalopathy Secondary diagnosis: -hypokalemia -dementia -mechanical falls -primary hypertension -CVA ruled out Discharge Disposition: Home with Health Services Discharge Instruct/Medications Diet: Cardiac 2g Na,low cholest Activity: No Restrictions, As Tolerated Follow Up/Referral: Follow up with PCP in 1-2 weeks Medications: Discontinue diuretics Continue all previous home medications Scheduled Gabapentin (Gabapentin), 1 CAP PO TID, (Reported) Memantine Hydrochloride (Memantine HCl), 1 TAB PO BID, (Reported) Metoprolol Succinate (Metoprolol Succinate Er), 1 TAB PO DAILY, (Reported) 36 Discharge Statement: "Patient was advised to return to the ER or call 911 if any headaches, dizziness, shortness of breath, chest pain, abdominal pain, bleeding, fevers, or worsening of medical condition. Patient was counseled about treatment plan, medications, possible side effects, patientverbalized understanding. All questions were answered to the best of my ability. This discharge took greater then 30 minutes in planning, reviewing documentation, counseling the patient, and discussing with other team members." ASSESSMENT ASSESSMENT Assessment Metabolic Encephalopathy Date of Service: Mar 07, 2025 Billing Provider: NIKKO URBINA NP Common Visit Codes: 16544-QLP/OBS DISCH DAY >30min NIKKO URBINA NP Mar 07, 2025 12:25
== END 2025-03-07 18:00 | disposition home or self-care (01) | DRG 640 ==
LOC: ER 03:00 → EDBD 03:00 → OVERFLOW 09:48 → TELE-CENTR 20:35
PROVIDERS: ADMIT Nurse Practitioner Acute Care; ATTEND Nurse Practitioner Acute Care
DX: E87.6 Hypokalemia (principal); G93.41 Metabolic encephalopathy; J18.9 Pneumonia, unspecified organism; D69.6 Thrombocytopenia, unspecified; R58 Hemorrhage, not elsewhere classified; I10 Essential (primary) hypertension; Z20.822 Contact with and (suspected) exposure to COVID-19; G40.909 Epilepsy, unspecified, not intractable, without status epilepticus; F03.90 Unspecified dementia, unspecified severity, without behavioral disturbance, psychotic disturbance, mood disturbance, and anxiety; R31.0 Gross hematuria; R29.6 Repeated falls; R74.01 Elevation of levels of liver transaminase levels; Z88.5 Allergy status to narcotic agent
CPT/HCPCS: 36415; 71045; 73502; 80048; 80053; 80076; 80307; 81001; 82140; 83605; 83735; 83880; 84439; 84443; 84484; 85025; 87040; 87081; 87426; 87804; 92610; 93306; 94640; 97163; G0378; J3480